=== PATIENT | male | born 1960 | race Caucasian/White ===

== ENCOUNTER 2022-09-15 08:07 | Observation (INO) | payer BC, SELFPAY ==
[2022-09-15] VITALS (40 sets, daily range): BP systolic 111–158; BP diastolic 69–98; PULSE 67–110; RESP 11–24; TEMP 36.2–36.6; O2SAT 93–100; BMI 26.4
--- NOTE | ~2022-09-15 | US_ITS ---
EXAMINATION: US carotid duplex BI DATE: 09/15/2022 22:52 INDICATION: Vertigo and dizziness TECHNIQUE: Grayscale, color Doppler, and pulsed Doppler images of the cervical carotid arteries were obtained. The degree of vessel stenosis is placed in one of the following categories: normal, <50%, 5 0-69%, >=70% but less than near-occlusion, near-occlusion, or total occlusion. Note that percent sten osis relative to normal distal artery lumen diameter is indirectly measured from velocity measurement s as described by Jeancarlos, et al. Radiology 2003; 229:340-346. COMPARISON: 06/20/2019 FINDINGS: RIGHT: The right common carotid artery (CCA) peak systolic velocity (PSV) is 89 cm/s. The right internal car otid artery (ICA) PSV is 88 cm/s. The right ICA end-diastolic velocity (EDV) is 27 cm/s. The right IC A/CCA PSV ratio is 1.0. Grayscale and color Doppler images yield an estimate of <50% diameter reducti on from minimal plaque in the ICA. The external carotid artery (ECA) PSV is 83 cm/s. There is antegra de flow in the right vertebral artery. LEFT: The left CCA PSV is 93 cm/s. The left ICA PSV is 76 cm/s. The left ICA EDV is 29 cm/s. The left ICA/C CA PSV ratio is 0.8. Grayscale and color Doppler images yield an estimate of <50% diameter reduction from minimal plaque in the ICA. The ECA PSV is 88 cm/s. There is antegrade flow in the left vertebral artery. IMPRESSION: 1. <50% stenosis from minimal plaque in the right internal carotid artery. 2. <50% stenosis from minimal plaque in the left internal carotid artery. Reviewed, dictated and finalized at location A. HING ARTIST
--- NOTE | ~2022-09-15 | MR_ITS ---
EXAMINATION: MR brain/brain stem wo con DATE: 09/16/2022 10:36 INDICATION: Dizziness. Vertigo. TECHNIQUE: Magnetic resonance imaging (MRI) of the brain and brainstem was performed without intraven ous contrast. COMPARISON: Brain MRI 07/17/2008, head CT 04/25/2012 FINDINGS: There is a punctate old microhemorrhage in right frontoparietal region. There are scattered areas of nonspecific increased T2-weighted signal intensity in the cerebral white matter and radha. T here is no intracranial hemorrhage, acute infarction, or abnormal intracranial mass lesion. The ventr icles are normal in size. There is mild mucosal thickening in the paranasal sinuses. The orbits are n ormal. The mastoid air cells are normal. IMPRESSION: 1. Mild nonspecific cerebral white matter disease and pontine disease, which likely represents chroni c small vessel ischemic disease. Reviewed, dictated and finalized at location E. MANAGER IMPRESSION: 1. Mild nonspecific cerebral white matter disease and pontine disease, which casper yusuf represents chronic small vessel ischemic disease.
--- NOTE | ~2022-09-15 | XR_ITS ---
XR chest 1V portable DATE: 09/15/2022 09:39 INDICATION: Syncope. Shortness of breath. Bilateral hand numbness. History of hypertension. TECHNIQUE: Portable upright AP chest on 09/15/2022 at 0937 hours COMPARISON: 12/25/2005 portable AP chest FINDINGS: Normal heart size. Large hiatal hernia. No hilar or mediastinal enlargement is evident. Mild infiltrate or atelectasis in the lower lung zones, left greater than right. The lungs otherwise appear clear. No pleural effusion or pulmonary vascular congestion or pneumothorax. Osteopenia. IMPRESSION: Large hiatal hernia Mild infiltrate or atelectasis in the lower lung zones, left greater than right Reviewed, dictated and finalized at location B. INE SHOP APPRENTICE
--- NOTE | 2022-09-15 08:34 | ECG_ITS ---
Measurements Intervals [place] Rate: 113 P: 56 MO: 152 QRS: -9 QRSD: 81 T: 29 QT: 334 QTc: 460 Interpretive Statements SINUS TACHYCARDIA ABNORMAL RHYTHM ECG NO PREVIOUS ECG AVAILABLE FOR COMPARISON Electronically Signed On 09-15-2022 15:02:03 WELL CONTROL INSTRUCTOR by Isar Yoder M.D.
[2022-09-15 08:44] LABS: Basophils Percent Auto 0.6 % (0.2-1.2); Eosinophils Absolute Auto 0.1 K/mm3 (0-0.3); Hematocrit 47.9 % (42.0-52.0); Hemoglobin 17.1 g/dL (14.0-18.0); Immature Granulocyte Absolute 0.02 K/mm3 (0.00-0.031); Immature Granulocyte Percent A 0.3 % (0-0.5); Lymphocytes Absolute Auto 2.37 K/mm3 (0.9-3.2); Mean Corpuscular HGB Conc 35.7 g/dl (32-36); Mean Corpuscular Volume 89.7 fl (80-100); Mean Platelet Volume 10.7 fl (7.4-10.4); Monocytes Absolute Auto 0.7 K/mm3 (0.1-0.6); Monocytes Percent Auto 11.4 % (2.6-8.5); Neutrophils Absolute Auto 3.1 K/mm3 (1.3-6.7); Neutrophils Percent Auto 48.7 % (45.5-73.1); Platelet Count Result 229 k/mm3 (150-375); Red Blood Count 5.34 M/mm3 (4.6-6.20); Red Cell Distribution Width 12.1 % (11.5-14.5); White Blood Count 6.4 K/mm3 (4.5-10.0)
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
[2022-09-15 08:55] LABS: Alanine Aminotransferase 28 U/L (6-50); Albumin Level 5.3 g/dL (3.5-5.1); Alkaline Phosphatase 76 U/L (38-126); Anion Gap 16 mmol/L (8-16); Aspartate Amino Transferase 32 U/L (17-59); Bilirubin,Total 1.1 mg/dL (0.2-1.3); Blood Urea Nitrogen 7 mg/dL (9-20); Calcium 9.6 mg/dL (8.4-10.2); Carbon Dioxide 18 mmol/L (22-30); Chloride 99 mmol/L (98-107); Estimated CRCL calculation 88 ml/min; Estimated Glomerular Filt Rate > 60; Glucose 118 mg/dL (65-110); Potassium 3.6 mmol/L (3.4-5.0); Sodium 133 mmol/L (137-145)
[2022-09-15 09:00] LABS: INR 0.9
[2022-09-15 09:22] LABS: Alveolar/Arterial O2 Gradient 23.8 mmHg; Base Excess ABG 0.7 mEq/l (+/-2.0); Fractional Inspired Oxygen 21 %; HCO3 ABG 21.3 mEq/l (22.0-26.0); Oxygen Content ABG 22.2 %vol (16.0-22.0); Oxygen Saturation ABG 98.1 % (95.0-100.0); Oxyhemoglobin 96.8 % THb (90.0-100.0); PCO2 ABG 25.4 mmHg (35.0-45.0); PO2 ABG 95.5 mmHg (80.0-100.0); PO2 FiO2 Ratio Arterial Blood 4.55 %; Total Hemoglobin 16.3 g/dL (12.0-18.0)
[2022-09-15 09:23] LABS: Device ROOM AIR; Modified Allen's Test Pass; Site Drawn RIGHT RADIAL; pH ABG 7.542 (7.350-7.450)
[2022-09-15 09:33] LABS: Troponin I < 0.012 ng/mL (0.000-0.034)
[2022-09-15 09:34] LABS: Ethanol < 10 mg/dL (<10)
[2022-09-15 09:40] LABS: Influenza A QL RT-PCR Negative (Negative); Influenza B QL RT-PCR Negative (Negative); SARS-CoV-2 RNA PCR Negative
[2022-09-15] MEDS: LORazepam INJ (*CRX) 2 MG/ML VIAL 1 MG IV PUSH (10:07)
--- NOTE | 2022-09-15 11:39 | PC.NURSE ---
[facility] food tray ordered
--- NOTE | 2022-09-15 13:00 | PM.IMHP ---
H&P: HPI History of Present Illness Date/Time: 09/15/22 13:00 Chief Complaint: Dizziness. Narrative: This is a 61-year-old male with hypertension, hyperlipidemia, and prediabetes who presented to the emergency department for evaluation of dizziness. While driving to work this morning he started to feel very lightheaded and dizzy, as though he was going to pass out associated with significant weakness. He turned around and drove back home and by that time he was anxious due to his symptoms and he admits that he started to hyperventilate at which time his hands felt numb and tingly. He then got out of the car to walk into the house at which time he reports that he could barely move due to profound weakness, and his brought him in for evaluation. The dizziness and weakness do not seem to be related to position. Vital signs were stable on arrival. ABG is consistent with acute respiratory alkalosis due to hyperventilation. EKG showed a sinus tachycardia without any significant changes. He was given lorazepam 1 mg with improvement in his symptoms however he continues to have episodes of weakness and lightheadedness and he is being admitted in this setting for close monitoring. At the time of my evaluation he has no specific complaints. He has never had exact symptoms before but admits that every once a while he does get anxious and will have the shaky feelings with rapid breathing. He denies auditory visual changes, facial droop, difficulty speaking, and focal weakness. He has been having issues with dysphagia recently and he in fact has an upcoming appointment on Tuesday to discuss this with his doctor. He denies chest pain, pleuritic pain, and palpitations. No recent illnesses. No history of seizures or alcohol withdrawal symptoms. Review of Systems Review of Systems: Twelve systems were reviewed and are negative except for as per HPI. [facility] Past Medical History Medical History (Updated 09/15/22 @ 20:29 by Dayana Morales PA-C) Alcohol abuse, daily use Essential hypertension Gout Irritable bowel syndrome Mixed hyperlipidemia Prediabetes Surgical History Surgical History History of colonoscopy with polypectomy History of tonsillectomy Family History Family History Mother Diabetes mellitus Father Hypertension Family history of cardiovascular disease Sibling Hypertension Other Asthma Social History Social History (Updated 09/15/22 @ 20:30 by Dayana Morales PA-C) Social History: Surrogate medical decision maker: Kasie Wilson, spouse. Code status: Full code. Smoking status: Never smoker Tobacco type: cigars Alcohol intake: current Drinks per week: 49 Alcohol use details: 8 to 10 light beers most nights of the week. Substance use: never Lack of Transportation: No Lack of Food: Never True Current Housing: I Have Housing Concerned About Future Housing: No Difficulty Paying Gas/Electric Bills: No Difficulty Paying for Meds: No Currently Unemployed: No Education: Associate Degree Difficulty w/ Childcare or Family Care: No Spiritual care concerns: No Meds Home Medications and Allergies Home Medications Medication Instructions Recorded Confirmed Type famotidine 20 mg tablet (Pepcid AC) 20 mg PO HS 12/04/20 09/15/22 History multivitamin 1 tablet PO DAILY 12/04/20 09/15/22 History sildenafil 100 mg tablet 100 mg PO DAILY PRN sexual 06/22/22 09/15/22 Rx activity #30 tabs allopurinol 300 mg tablet 300 mg PO HS 09/15/22 09/15/22 History amlodipine 10 mg tablet 10 mg PO HS 09/15/22 09/15/22 History lisinopril 20 mg tablet 20 mg PO HS 09/15/22 09/15/22 History mometasone 50 mcg/actuation nasal 2 spray intranasal HS PRN Nasal 09/15/22 09/15/22 History spray Congestion Allergies Allergy/AdvReac Type Severity Reaction Status Date / Time No Known Erick
--- NOTE | 2022-09-15 16:00 | ADMGEN ---
This patient, Evelio Wilson, was admitted to 2 Medical Room 242-. Patient/family oriented to hospital policies and general routines including ID bracelet, bed and alarms, visiting hours, pain management, procedures, bathroom and other care routines, personal items, smoking policy, room service/diet, and visiting hours. Information on how to activate the Rapid Response Team has been discussed. Patient/Family are encouraged to report perceived risks to care and to ask questions if they do not understand what they are told or what they should do.
[2022-09-15] MEDS: lisinopriL 20 MG TABLET PO (21:24)
[2022-09-15] MEDS: allopurinoL 300 MG TABLET PO (21:24)
[2022-09-15] MEDS: amLODIPine BESYLATE 5 MG TABLET 10 MG PO (21:24)
[2022-09-15] MEDS: FAMOTIDINE 20 MG TABLET PO (21:24)
[2022-09-15 22:03] LABS: Anion Gap 8 mmol/L (8-16); Blood Urea Nitrogen 13 mg/dL (9-20); Calcium 8.6 mg/dL (8.4-10.2); Carbon Dioxide 26 mmol/L (22-30); Chloride 101 mmol/L (98-107); Estimated CRCL calculation 65 ml/min; Estimated Glomerular Filt Rate > 60; Glucose 189 mg/dL (65-110); Magnesium 2.3 mg/dL (1.6-2.3); Potassium 3.8 mmol/L (3.4-5.0); Sodium 135 mmol/L (137-145)
[2022-09-16] VITALS: PULSE 68
[2022-09-16 03:41] LABS: Hemoglobin A1C 5.7 % (<5.7)
[2022-09-16 04:00] VITALS: BP 111/78; PULSE 60; PULSE 74; RESP 18; TEMP 36.3; O2SAT 99
[2022-09-16 08:00] VITALS: PULSE 78
[2022-09-16] MEDS: FOLIC ACID 1 MG TABLET PO (08:03)
[2022-09-16] MEDS: MULTIVITAMINS THERAPEUTIC TAB (*BKC) 1 TABLET PO (08:03)
[2022-09-16] MEDS: THIAMINE HCL 100 MG TABLET PO (08:03)
[2022-09-16 11:10] VITALS: BP 125/80; PULSE 72; RESP 14; TEMP 36.4; O2SAT 100
[2022-09-16 12:04] VITALS: PULSE 76
--- NOTE | 2022-09-16 13:26 | PC.NURSE ---
On 09/16/22, the student, [Maria Luisa Guzman], provided care and completed [facility] documentation on this patient. I have reviewed the student's documentation and agree with the findings.
[2022-09-16 13:52] VITALS: BP 115/75; PULSE 81; RESP 14; TEMP 36.4; O2SAT 99
[2022-09-16 15:33] LABS: Folic Acid > 20.0 ng/mL (2.76->20)
--- NOTE | 2022-09-16 15:57 | PM.DS ---
DS: Admitting Diagnosis Discharge Date 09/16/2022 1557 Admitting Diagnosis Dizziness Near syncope Hyperventilation Essential hypertension Mixed hyperlipidemia Alcohol abuse, daily use DS: Discharge Diagnosis Discharge Diagnosis (1) Fatigue: Qualifiers: Fatigue type: unspecified Qualified Code(s): R53.83 - Other fatigue Code(s): R53.83 - Other fatigue Status: Acute (2) Near syncope: Code(s): R55 - Syncope and collapse Status: Acute (3) Hyperventilation: Code(s): R06.4 - Hyperventilation Status: Acute (4) Ascending aorta enlargement: Code(s): I77.89 - Other specified disorders of arteries and arterioles Status: Chronic (5) Alcohol abuse, daily use: Code(s): F10.10 - Alcohol abuse, uncomplicated Status: Chronic (6) Essential hypertension: Code(s): I10 - Essential (primary) hypertension Status: Chronic (7) Prediabetes: Code(s): R73.03 - Prediabetes Status: Chronic (8) Mixed hyperlipidemia: Code(s): E78.2 - Mixed hyperlipidemia Status: Chronic DS: Summary Hospital Course Reason for hospitalization: Dizziness Hospital Course: Evelio Wilson is a 61-year-old male with hypertension, hyperlipidemia, and prediabetes who presented to the emergency department for evaluation of dizziness. While driving to work on the day of admission, he started to feel overwhelming fatigue, lightheaded and dizzy, as though he was going to pass out. This was associated with generalized weakness. He turned around and drove back home and by that time he was anxious due to his symptoms and he admits that he started to hyperventilate at which time his hands felt numb and tingly. He then got out of the car to walk into the house at which time he reported that he could barely move due to profound weakness, and his brought him in for evaluation. The dizziness and weakness were not related to position. Vital signs were stable on arrival. ABG is consistent with acute respiratory alkalosis due to hyperventilation. EKG showed a sinus tachycardia without any ischemic changes. He was given lorazepam 1 mg with improvement in his symptoms, however he continued to have episodes of weakness and lightheadedness and was therefore admitted for close monitoring. He denied ever having these exact symptoms before, but admitted that every once a while he does get anxious and will have the shaky feelings with rapid breathing. He denied auditory or visual changes, facial droop, difficulty speaking, or focal weakness. He reported chronic issues with dysphagia recently and he has an upcoming appointment on Tuesday to discuss this with his PCP. He denied chest pain, pleuritic pain, and palpitations. No recent illnesses. No history of seizures or alcohol withdrawal symptoms. He was admitted to the medical floor for further evaluation. EKG showed sinus tachycardia without ischemic changes. Chest x-ray suggested mild atelectasis bilaterally. Carotid doppler showed <50% stenosis right and left ICA. Echocardiogram showed normal LV systolic function, grade 1 diastolic dysfunction, no intracardiac shunt, and enlarged ascending aorta at 3.6 cm. Brain MRI showed mild nonspecific cerebral white matter disease and pontine disease, which likely represents chronic small vessel ischemic disease. He had no focal deficits and dizziness resolved. He denied c/o worsening stress. He did endorse nocturia and increased daytime fatigue. He would benefit from a sleep study. He was recommended not to drink fluids before bedtime and to establish a sleep routine. He was counseled on diet and exercise. He was discharged home instable condition with follow up with his PCP. Status at Discharge Cognitive/behavioral status at discharge: Alert and oriented x4 Functional status at discharge: independent ambulation Overall status at discharge: patient is back to baseline Time Spent with Patient Time att
--- NOTE | 2022-09-16 20:13 | ECHO_ITS ---
Patient Info Name: Evelio Wilson Age: 61 years : 1960 Gender: Male Ht: 70 in Wt: 184 lbs BSA: 2.04 m2 HR: 78 bpm BP: 111 / 78 mmHg Heart Rhythm: Sinus Rhythm Technical Quality: Fair Exam Date: 09/16/2022 1:03 PM Exam Location: [facility] Exam Room: 242 Patient Status: Inpatient Admit Date: 09/15/2022 Staff Ordering Physician: Dayana Morales PA-C Equipment Cleaner And Tester: America Alcantar RDCS Attending Provider: Rayshawn English MD Referring Physician: Carmen KELLEY; Exam Type: CA echo doppler w bubble study Study Info Indications - dizziness htn papitations Complete two-dimensional, color flow and Doppler transthoracic echocardiogram is performed with agitated saline. Contrast/Agitated Saline Contrast/Ag. Saline: Agitated Saline Amount: 20.00 ml Administered By: Maria Dolores Tracy RDCS Existing IV Access: Yes IV Access Condition: patent with no signs of infiltration Summary 1. Normal left ventricular size and systolic function. 2. Grade 1 diastolic noncompliance. 3. Trivial mitral valve regurgitation. 4. Modestly enlarged ascending aorta at 3.6 cm. 5. Agitated saline contrast did not show any intracardiac shunt. Left Ventricle Left ventricular chamber dimension is normal. Left ventricular systolic function is normal, estimated at 65-70%. The left ventricular diastolic function is grade I diastolic dysfunction. Right Ventricle Right ventricular chamber dimension is normal. Left Atria Left atrial chamber dimension is normal. Right Atria Right atrial chamber dimension is normal. Atrial Septum Intact interatrial septum visualized by agitated saline imaging. Aortic Valve The aortic valve is normal. Pulmonic Valve The pulmonic valve is normal. Mitral Valve The mitral valve has normal leaflets. There is trace mitral valve regurgitation. Tricuspid Valve The tricuspid valve leaflets are normal. Pericardium/Pleural The pericardium appears normal. Aorta The aortic root size at the sinus of Valsalva is mildly dilated. Left Ventricular Outflow Tract Name Value Normal LVOT 2D LVOT Diameter 2.1 cm LVOT Doppler LVOT Peak Gradient 7 mmHg LVOT Mean Gradient 3 mmHg LVOT VTI 23 cm LVOT VTI/AV VTI Ratio 0.8 LVOT Stroke Volume 79 ml LVOT CO 17.4 l/min LVOT CI 8.5 l/min/m2 Pulmonic Valve Name Value Normal PV Doppler PV Peak Gradient 3 mmHg Mitral Valve Name Value Normal
== END 2022-09-16 16:30 | disposition home or self-care (01) ==
LOC: ANHED 10:44 → ANH2MED 09-16 15:57 → ANH3MEDSUR 09-17 11:47
PROVIDERS: Nurse Practitioner Family; Physician Assistant; Admitting Provider Family Medicine; Emergency Provider Emergency Medicine; PCP Family Medicine; Visit Provider Student in an Organized Health Care Education/Training Program
DX: R55 Syncope and collapse (principal); R06.4 Hyperventilation; I11.9 Hypertensive heart disease without heart failure; E78.2 Mixed hyperlipidemia; K44.9 Diaphragmatic hernia without obstruction or gangrene; F10.10 Alcohol abuse, uncomplicated; Y90.0 Blood alcohol level of less than 20 mg/100 ml; Z20.822 Contact with and (suspected) exposure to COVID-19; E66.9 Obesity, unspecified; Z68.26 Body mass index [BMI] 26.0-26.9, adult; R90.82 White matter disease, unspecified; G93.89 Other specified disorders of brain; M10.9 Gout, unspecified; R73.03 Prediabetes; K58.9 Irritable bowel syndrome, unspecified; F17.290 Nicotine dependence, other tobacco product, uncomplicated; R00.0 Tachycardia, unspecified; R94.31 Abnormal electrocardiogram [ECG] [EKG]; Z79.899 Other long term (current) drug therapy; Z82.49 Family history of ischemic heart disease and other diseases of the circulatory system; Z83.3 Family history of diabetes mellitus
CPT/HCPCS: 36415; 36600; 70551; 71045; 80048; 80053; 80307; 82607; 82746; 82805; 83036; 83735; 84443; 84484; 85025; 85610; 87636; 93005; 93306; 93880; 96374; 96375; 99285; A9270; G0378; J2060

== ENCOUNTER 2022-10-09 17:39 | Emergency (ER) | payer BC, SELFPAY ==
--- NOTE | ~2022-10-09 | XR_ITS ---
EXAMINATION: XR chest 2V Exam Date/Time: 10/09/2022 18:50 PERSONNEL ANALYST HISTORY: cp, food bolus, PT STATES HE SWOLLWED CHUNK OF MEAT Comparison: 09/15/2022. RESULT: Lines, tubes, and devices: None. Lungs and pleura: Clear. Cardiomediastinal silhouette: Stable. Other: No acute osseous or upper abdominal finding. IMPRESSION: No acute cardiopulmonary process. Reviewed, dictated and finalized at location K. ONNEL ANALYST
[2022-10-09 17:42] VITALS: BP 153/116; PULSE 116; RESP 18; TEMP 36.5; O2SAT 100
[2022-10-09 17:58] VITALS: PULSE 116
--- NOTE | 2022-10-09 18:01 | ECG_ITS ---
Measurements Intervals [place] Rate: 113 P: 44 [place]: 164 QRS: -12 QRSD: 86 T: 12 QT: 316 QTc: 434 Interpretive Statements SINUS TACHYCARDIA BORDERLINE T WAVE ABNORMALITY- INFERIOR LEADS BASELINE ARTIFACT- I, II, III, AVR, AVL, AVF, V1-V2, V6 ABNORMAL ECG COMPARED TO ECG 09/15/2022 08:16:19 NO SIGNIFICANT CHANGES Electronically Signed On 10-10-2022 7:44:49 STUDENT SPECIALIST by Miguelito Guo D.O.
--- NOTE | 2022-10-09 18:11 | ED.SKABFB ---
HPI - Skin/Abscess/Foreign Bdy General Chief complaint: Skin/Abscess/Foreign Body Stated complaint: indigestion problems Time Seen by Provider: 10/09/22 17:48 Source: patient Mode of arrival: ambulatory Limitations: no limitations History of Present Illness HPI narrative: This is a 61 year old male that presents to the ER for possible esophageal foreign body. Reports he was eating roast beef just before arrival. He feels as though it is stuck in his esophagus. Reports pressure and gas. Reports frequent belching. He has been able to tolerate his secretions. He has not tried to eat or drink since. He has been having trouble with difficulty swallowing over the last couple of months. He has not been evaluated for his swallowing problems yet by GI. Denies shortness of breath. Related Data Home Medications Medication Instructions Recorded Confirmed famotidine 20 mg tablet (Pepcid AC) 20 mg PO HS 12/04/20 09/15/22 multivitamin 1 tablet PO DAILY 12/04/20 09/15/22 allopurinol 300 mg tablet 300 mg PO HS 09/15/22 09/15/22 amlodipine 10 mg tablet 10 mg PO HS 09/15/22 09/15/22 mometasone 50 mcg/actuation nasal 2 spray intranasal HS PRN Nasal 09/15/22 09/15/22 spray Congestion Allergies Allergy/AdvReac Type Severity Reaction Status Date / Time No Known Allergies Allergy Mild Verified 10/09/22 17:45 Review of Systems Review of Systems: CONSTITUTIONAL: Denies fever CARDIOVASCULAR: Reports epigastric pain RESPIRATORY: Denies dyspnea. GASTROINTESTINAL: Reports dysphagia and nausea. Denies vomiting All systems reviewed & are unremarkable except as noted in HPI and below PMFSH Past Medical History Medical History Alcohol abuse, daily use Essential hypertension Gout Irritable bowel syndrome Mixed hyperlipidemia Prediabetes Surgical History Surgical History History of colonoscopy with polypectomy History of tonsillectomy Family History Family History Mother Diabetes mellitus Father Hypertension Family history of cardiovascular disease Sibling Hypertension Other Asthma Social History Social History Social History: Surrogate medical decision maker: Kasie Wilson, spouse. Code status: Full code. Smoking status: Never smoker Tobacco type: cigars Alcohol intake: current Drinks per week: 49 Alcohol use details: 8 to 10 light beers most nights of the week. Substance use: never Lack of Transportation: No Lack of Food: Never True Current Housing: I Have Housing Concerned About Future Housing: No Difficulty Paying Gas/Electric Bills: No Difficulty Paying for Meds: No Currently Unemployed: No Education: Associate Degree Difficulty w/ Childcare or Family Care: No Spiritual care concerns: No Exam Narrative: GENERAL: Well-appearing, well-nourished, mildly uncomfortable HEAD: Normocephalic, atraumatic. EYES: EOMI. ENT: Nares clear, no rhinorrhea or epistaxis. Mucous membranes moist. Oropharynx without tonsillar hypertrophy exudate or other lesions. CHEST: Clear to auscultation. No respiratory distress. No wheezes rales or rhonchi HEART: Regular rate and rhythm. No murmur heard. Normal peripheral pulses. ABDOMEN: Soft, nontender, nondistended, normal active bowel sounds. EXTREMITIES: Normal range of motion. No edema. SKIN: Warm, dry, no rash. NEURO: No focal deficits. Alert and oriented x3. PSYCH: Normal mood and affect Course Consultations Consultation #1: Spoke with Dr. Yoder, gastroenterology in [place]. Recommends patient try some water to see if he is able to keep it down. Will call back to update Date: 10/09/22 Vital Signs Vital signs: Vital Signs Temperature 97.7 F 10/09/22 17:42 Pulse Rate 116 H 10/09/22 17:42 Respiratory Rate 18 10/09/22 17:
[2022-10-09 18:12] LABS: Basophils Absolute Auto 0.1 K/mm3 (0.0-0.1); Basophils Percent Auto 0.4 % (0.2-1.2); Eosinophils Percent Auto 0.1 % (0-4.4); Hematocrit 46.7 % (42.0-52.0); Hemoglobin 16.1 g/dL (14.0-18.0); Immature Granulocyte Percent A 0.7 % (0-0.5); Lymphocytes Absolute Auto 0.82 K/mm3 (0.9-3.2); Lymphocytes Percent Auto 5.8 % (18.3-44.2); Mean Corpuscular HGB Conc 34.5 g/dl (32-36); Mean Corpuscular Hemoglobin 31.5 pg (26-34); Mean Corpuscular Volume 91.4 fl (80-100); Mean Platelet Volume 11.1 fl (7.4-10.4); Monocytes Absolute Auto 0.9 K/mm3 (0.1-0.6); Monocytes Percent Auto 6.3 % (2.6-8.5); Neutrophils Absolute Auto 12.2 K/mm3 (1.3-6.7); Neutrophils Percent Auto 86.7 % (45.5-73.1); Platelet Count Result 204 k/mm3 (150-375); Red Blood Count 5.11 M/mm3 (4.6-6.20); Red Cell Distribution Width 12.3 % (11.5-14.5); White Blood Count 14.1 K/mm3 (4.5-10.0)
[2022-10-09] MEDS: PANTOPRAZOLE SODIUM IV 40 MG VIAL IV PUSH (18:17)
[2022-10-09] MEDS: SODIUM CHLORIDE 0.9% IV 500 ML 999 ML IV CONT (18:17)
[2022-10-09] MEDS: GLUCAGON FOR INJ 1 MG VIAL IM (18:17)
[2022-10-09] MEDS: ONDANSETRON INJ 4 MG/2 ML VIAL IV PUSH (18:17)
[2022-10-09 18:42] LABS: Alanine Aminotransferase 34 U/L (6-50); Albumin Level 4.9 g/dL (3.5-5.1); Alkaline Phosphatase 70 U/L (38-126); Anion Gap 9 mmol/L (8-16); Aspartate Amino Transferase 41 U/L (17-59); Bilirubin,Total 1.1 mg/dL (0.2-1.3); Blood Urea Nitrogen 12 mg/dL (9-20); Calcium 9.2 mg/dL (8.4-10.2); Carbon Dioxide 24 mmol/L (22-30); Chloride 101 mmol/L (98-107); Estimated CRCL calculation 72 ml/min; Estimated Glomerular Filt Rate > 60; Glucose 163 mg/dL (65-110); Lipase 95 U/L (23-300); Potassium 4.1 mmol/L (3.4-5.0); Sodium 134 mmol/L (137-145)
[2022-10-09 19:31] LABS: Troponin I < 0.012 ng/mL (0.000-0.034)
[2022-10-09 19:54] VITALS: BP 153/93; PULSE 116; RESP 20; TEMP 36.7; O2SAT 100
[2022-10-09 20:53] LABS: Hemoglobin A1C 5.9 % (<5.7)
[2022-10-09 21:00] VITALS: BP 145/87; PULSE 84; RESP 18; TEMP 36.8; O2SAT 100
[2022-10-09 21:05] LABS: Influenza A QL RT-PCR Negative (Negative); Influenza B QL RT-PCR Negative (Negative); SARS-CoV-2 RNA PCR Negative
[2022-10-09 22:00] VITALS: PULSE 98; RESP 18; TEMP 36.6; O2SAT 100
[2022-10-09 22:30] VITALS: BP 128/79; PULSE 86; RESP 18; TEMP 36.7; O2SAT 100
== END 2022-10-09 22:32 | disposition home or self-care (01) ==
PROVIDERS: Emergency Provider Physician Assistant; PCP Family Medicine
DX: R13.10 Dysphagia, unspecified (principal); R00.0 Tachycardia, unspecified; Z20.822 Contact with and (suspected) exposure to COVID-19; I10 Essential (primary) hypertension; E78.5 Hyperlipidemia, unspecified
CPT/HCPCS: 36415; 71046; 80053; 83036; 83690; 84484; 85025; 87636; 93005; 96361; 96372; 96374; 96375; 99284; C9113; J1610; J2405; J7040

== ENCOUNTER 2024-08-21 14:34 | Outpatient (CLI) | payer BC, SELFPAY ==
--- NOTE | 2024-08-28 16:26 | WPDHOLTEREM ---
Holter/Event Monitor Holter/Event Monitor Date of procedure: 08/21/24 Holter/Event Procedure: 3-7 Day Holter Monitor Indications: Palpitations Conclusion: 1. 3 days holter monitor on 08/21/14. 2. Predominant rhythm is sinus rhythm. HR range 58-141 bpm; average HR 77 bpm. 3. There are rare premature supraventricular complexes. There are 2 episodes of supraventricular tachycardia both lasting 4 beats at 108 bpm and 126 bpm. 4. There are occasional premature ventricular complexes at 1.1%. No ventricular tachycardia. 5. No significant pauses greater than 3 seconds. 6. Patient reports 12 episodes of symptoms of irregular beats which demonstrate sinus rhythm, HR range 65-107 bpm with 8 episodes with PVC's.
== END 2024-08-21 14:35 | disposition home or self-care (01) ==
PROVIDERS: PCP Family Medicine; Visit Provider Nurse Practitioner Family
DX: R00.2 Palpitations (principal)
CPT/HCPCS: 93242